=== PATIENT | female | born 1990 | race Caucasian/White ===

== ENCOUNTER 2016-04-23 09:22 | Outpatient (CLI) | payer MEDICAID ==
[~2016-04-23 09:22] MED LIST: MECL25TA4 PO; PREN1TAB60 PO
== END 2016-04-23 10:36 | disposition home or self-care (01) ==
LOC: LDOP 09:22
PROVIDERS: ATTEND Obstetrics & Gynecology
DX: O26.893 Other specified pregnancy related conditions, third trimester (principal); R10.9 Unspecified abdominal pain; N89.8 Other specified noninflammatory disorders of vagina; Z3A.36 36 weeks gestation of pregnancy
CPT/HCPCS: 59025; 99211; G0463

== ENCOUNTER 2017-04-01 10:25 | Emergency (ER) | payer MEDICAID ==
[~2017-04-01 10:25] MED LIST changes: +IBUP-1222 PO
== END 2017-04-01 11:09 ==
LOC: ED 11:03
DX: F41.9 Anxiety disorder, unspecified (principal); Z53.21 Procedure and treatment not carried out due to patient leaving prior to being seen by health care provider